=== PATIENT | male | born 1995 | race African-American/Black ===

== ENCOUNTER 2020-03-09 00:23 | Emergency (ER) | payer SELFPAY ==
[~2020-03-09] VITALS: Ht 182.9 cm; Wt 91.0 kg
[2020-03-09] MEDS ORDERED: SODIUM CHLORIDE 0.9% 1,000 ML IV ONE (00:48)
[2020-03-09] MEDS ORDERED: LORAZEPAM 2MG/ML CPJ IM STA (00:48)
[2020-03-09] MEDS ORDERED: DIPHENHYDRAMINE 50MG/ML VIAL IM STA (00:48)
[2020-03-09] MEDS ORDERED: HALOPERIDOL LACTATE 5MG/ML VIAL IM STA (00:48)
[2020-03-09 02:09] LABS: EOSINOPHILS % 3.3 % (0.0-5.0); HEMOGLOBIN. 14.2 g/dL (14.0-18.0); LYMPHOCYTES % 31.3 % (20.0-50.0); MEAN CORPUSCULAR HEMOGLOBIN 29.1 pg (28.0-32.0); MEAN CORPUSCULAR VOLUME 85.6 fL (80.0-94.0); MEAN PLATELET VOLUME 10.1 fl (7.4-10.4); MONOCYTES % 10.6 % (2.0-8.0); NEUTROPHILS % 53.8 % (40.0-76.0); PLATELET 170 x1000/uL (130-400); RED CELL DISTRIBUTION WIDTH 13.6 % (11.6-14.6)
[2020-03-09 02:16] LABS: CHLORIDE 109 mEq/L (98-107)
[2020-03-09 02:20] LABS: CLARITY URINE CLOUDY (CLEAR); COLOR URINE DARK YELLOW (YELLOW); KETONES URINE TRACE (NEGATIVE); LEUKOCYTE ESTERASE URINE NEGATIVE (NEGATIVE); NITRITE URINE NEGATIVE (NEGATIVE); OCCULT BLOOD URINE 2+ (NEGATIVE); PROTEIN URINE 1+ (NEGATIVE); SPECIFIC GRAVITY URINE 1.031 (1.005-1.030)
[2020-03-09 02:22] LABS: ETHANOL BLOOD < 10 mg/dL
[2020-03-09] MEDS ORDERED: LORAZEPAM 2MG/ML CPJ IV ONE (02:30)
[2020-03-09 02:32] LABS: *AMPHETAMINES SCREEN URINE PRESUMTIVE POSITIVE (NEGATIVE); *BARBITURATES SCREEN URINE NEGATIVE (NEGATIVE); *BENZODIAZEPINES SCREEN URINE NEGATIVE (NEGATIVE)
[2020-03-09 02:33] LABS: *COCAINE SCREEN URINE NEGATIVE (NEGATIVE); CANNABINOID URINE SCREEN NEGATIVE (NEGATIVE); METHADONE URINE SCREEN NEGATIVE (NEGATIVE); OPIATES URINE SCREEN NEGATIVE (NEGATIVE); PHENCYCLIDINE URINE SCREEN NEGATIVE (NEGATIVE)
[2020-03-09 10:20] VITALS: BP 128/90
== END 2020-03-09 15:06 | disposition left against medical advice (07) ==
LOC: ER 00:40
DX: F15.10 Other stimulant abuse, uncomplicated (principal); F16.10 Hallucinogen abuse, uncomplicated; R41.82 Altered mental status, unspecified; Z78.1 Physical restraint status
CPT/HCPCS: 36415; 70450; 80053; 80305; 80307; 80320; 80329; 81003; 85025; 93005; 96361; 96372; 96374; 99285; J1200; J1630; J2060; J7030; G0480